=== PATIENT | male | born 1965 | race Caucasian/White ===

== ENCOUNTER 2017-04-06 04:13 | Inpatient (IN) | payer MEDICAID ==
[~2017-04-06] VITALS: Ht 185.4 cm; Wt 90.9 kg
[2017-04-06 04:19] VITALS: BP 131/74
--- NOTE | 2017-04-06 04:22 | Emergency Room Report ---
History of Present Illness Time Seen by 0419 Presenting Problem in Triage Pt arrived:Walked Presenting Problem:CP ON LEFT SIDE RADIATING TO LEFT ARM. PT STATES HE FELT LIKE HE HAS PNEUMONIA, C/O SOB, HAS VOMITED ONCE. Onset of symptoms date/time:/ or onset unknown for:MEDICAL HX UNKNOWN Treatment Prior to Arrival: PT STATES HE TOOK NYQUIL AND MOTRIN, STATED HE FELT LIKE HE HAD PNEUMONIA. 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 N Clinical Suspician of Infection? N Mental Status: 1 - Regular (Normal Baseline) Sepsis Risk:Possible Sepsis Risk Have you (or family members/close friends) recently traveled outside the [place]? N If Yes, where/when: Have you had exposure to infectious disease within the past month? N TB? Other? Specify: Comment Patient says he has been sick for about 24 hours. He started with a productive cough yesterday morning. He says he has colored sputum. He has felt hot, but has not taken his temperature. He says yesterday morning "I came down with a cold". He vomited once yesterday. He says about 3 or 4 hours ago he started having sharp chest pains from his LEFT shoulder blade through to the front of his chest that increases with coughing and when laying back. He says he is having trouble breathing. He does not know whether he has been wheezing. He is a smoker, but says he does not have a diagnosis of chronic obstructive pulmonary disease. No known heart disease. He is not on any prescription medication. He says that he has had to have breathing treatments or inhalers in the past for illnesses. No recent travel, hospitalizations, or surgeries. No calf pain or swelling. He says he recently moved back here a year and a half ago after living in [place]. He does not have a primary care provider here. ALLERGIES Coded Allergies: No Known Allergies (04/06/17) Home Medications Reported Medications No Known Home Medications History Medical History Surgical Hx Previous Surgery?Y KNEE Review of Systems All Other Systems Reviewed and Negative Constitutional see HPI Respiratory cough, shortness of breath Cardiovascular chest pain Physical Exam Vital Signs Vital Signs Date Time Temp Pulse Resp B/P Pulse O2 O2 Flow FiO2 Ox Delivery Rate 04/06 0752 72 20 109/73 94 4 04/06 0719 72 20 113/62 97 4 04/06 0525 20 04/06 0458 91 25 109/69 96 04/06 0429 89 04/06 0419 99.1 107 25 131/74 87 General Appearance no apparent distress Eye Exam - bilateral eye normal exam, bilateral eye PERRL, bilateral eye EOMI Ear, Nose, Throat hearing grossly normal, normal ENT inspection Neck normal inspection, non-tender, supple, full range of motion Respiratory Status Yes: trachea midline, chest symmetrical, non tender chest, non productive cough. No: respiratory distress. Lung Sounds bilateral: normal breath sounds, lungs clear. Cardiovascular normal exam, regular rate/rhythm, no peripheral edema, no gallop, no JVD, no murmur, no rub, normal peripheral pulses Peripheral Pulses Pulses normal Yes Gastrointestinal normal bowel sounds, normal exam, non tender, soft, no organomegaly Extremities non-tender, normal range of motion, normal inspection Neurologic alert, normal exam, oriented x 3 Mental status normal mood/affect Skin intact, normal color, warm/dry Lymphatic no adenopathy Medical Decision Making LABS/Meds/Orders Pt receiving controlled substance in ED? No Results/Orders Laboratory Tests 04/06/17424: Lactic Acid 1.1 04/06/17424: Sodium 136, Potassium 4.2, Chloride 100, Carbon Dioxide 31, BUN 17, Creatinine 1.0, Estimated Creat Clear 110, Estimated GFR (MDRD) 78, Glucose 133 H, Calcium 8.8, Total Bilirubin 0.7, AST 16, ALT 22, Alkaline Phosphatase 96, Creatine Kinase 100, CK-MB (CK-2) Rel Index 0.9, CK and CKMB Interp 0.9, Troponin I < 0.02, Total Protein 7.9, Albumin 4.2, Globulin 3.7 H, Albumin/Globulin Ratio 1.1, D-Dimer 216, WBC 9.4, RBC 4.83, Hgb 15.4, Hct 47.2, MCV 97.7, RDW 12.5, Plt Count 257, MPV 7.7, Gran % 84.7 H, Gran # 8.0, Lymphocytes % 7.9 L, Monocytes % 6.3, Eosinophils % 0.5, Basophils % 0.6, Lymphocytes # 0.7, Monocytes # 0.6, Eosinophils # 0.1, Basophils # 0.1, PUBS MCHC 32.6, MCH 31.9 H Current Medication Orders Sig/Alyce Start time Last Medication Dose Route Stop Time Status Admin Azithromycin 0 .STK-MED ONE 04/06 0747 DC IV Methylprednisolone 0 .STK-MED ONE 04/06 0747 DC Sodium Succinate .ROUTE Sodium Chloride 250 ML .STK-MED ONE 04/06 0746 DC IV Azithromycin 500 MG ONCE ONE 04/06 0745 AC 04/06 Sodium Chloride 250 ML IV 04/06 0844 0750 Methylprednisolone 125 MG ONCE ONE 04/06 0745 DC 04/06 Sodium Succinate IV 04/06 0746 0749 Iopamidol 60 ML PRN PRN 04/06 0730 UNV 04/06 IV 0630 Sodium Chloride 20 ML ONCE ONE 04/06 0730 UNV 04/06 IV 04/06 0731 0630 Sodium Chloride 20 ML ONCE ONE 04/06 0730 UNV 04/06 IV 04/06 0731 0630 Sodium Chloride 10 ML ONCE ONE 04/06 0730 UNV 04/06 IV 04/06 0731 0630 Ketorolac 30 MG ONCE ONE 04/06 0530 DC 04/06 Tromethamine IV 04/06 0531 0525 Benzonatate 0 .STK-MED ONE 04/06 0447 DC PO Albuterol/Ipratropium 3 ML ONCE ONE 04/06 0445 DC 04/06 INH 04/06 0446 0454 Benzonatate 200 MG ONCE ONE 04/06 0445 DC 04/06 PO 04/06 0446 0447 Aspirin 325 MG ONCE ONE 04/06 0430 DC 04/06 PO 04/06 0431 0427 Sodium Chloride 10 ML PRN PRN 04/06 0430 AC IV 04/07 0424 Aspirin 0 .STK-MED ONE 04/06 0422 DC .ROUTE Orders Procedure Date/time Status DIET-NOTHING BY MOUTH 04/[address] CHEST W/PE PROTOCOL REQ 04/06 0544 Complete RT Aerosol Treatment, Provide 04/06 0454 Active D-DIMER 04/06 0446 Complete RT REQUEST DUONEB 04/06 0444 Active CULTURE, BLOOD 04/06 0427 Active LACTIC ACID 04/06 0427 Complete 12 LEAD EKG-BESSON (INITIAL) 04/06 0426 Active ELECTROCARDIOGRAM REQUEST 04/06 0426 Active IV SALINE LOCK 04/06 0426 Active OXYGEN PER NURSE 11/12 0426 Active 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 No infiltrate, pneumothorax, pleural effusion, or wide mediastinum. CT chest Comment CT scan interpreted by radiologist: No evidence of pulmonary embolus or aortic aneurysm. Centrilobular emphysematous changes with obstructive chronic bronchitis. Coronary artery calcifications with minimal thickening of the pericardium anteriorly. Indeterminant 18 mm isodense lesion of the LEFT kidney. Progress - 5:45 AM: Patient says he feels a little better, but when oxygen turned off his pulse ox drops to 85 percent on room air. Patient will be admitted. He is agreeable. 8:10 AM: No return call from Dr. Peña as of yet. Case discussed with Dr. Francois at shift change. He will take the call from Dr. Peña's group. Orders have already been entered for admission. Departure Departure Disposition Still a Patient Clinical Impression Primary Impression: Acute respiratory failure with hypoxia Secondary Impressions: Acute bronchitis Qualifiers: Bronchitis organism: unspecified organism Qualified Code: J20.9 - Acute bronchitis, unspecified COPD exacerbation Condition STABLE Referrals NO REFERRAL Prescriptions Current Visit Scripts No Known Home Medications ED Critical Care Critical Care Yes Time spent 30-74 min Vital system(s) involved: Respiratory Failure I was present at bedside for Coordinating pt's care, Interpreting EKGs/Strips , During my initial exam, Reviewing lab results, Discussing pt condition, Examining radiographs at 0811
--- OUTSIDE RECORDS SUMMARY | 2017-04-06 04:33 | External Medical Summary Rpt ---
Author Author [employer]AC[employer]EL Lopez, JACIEL Lopez Organization [employer] Address Unknown Phone Unavailable
--- OUTSIDE RECORDS SUMMARY | 2017-04-06 04:33 | External Medical Summary Rpt | CCD ---
Author Author [employer] Organization [employer] Address Unknown Phone Unavailable Purpose Continuity of Care Document - through 2016
--- OUTSIDE RECORDS SUMMARY | 2017-04-06 04:33 | External Medical Summary Rpt | CCD ---
Demographics Preferred Language Taiwanese Marital Status Unknown Mandaeism Affiliation Unknown Race Unknown Ethnic Group Unknown Author Author , JACIEL GRISSOM Address Unknown Phone Immunization No patient found.
--- OUTSIDE RECORDS SUMMARY | 2017-04-06 04:33 | External Medical Summary Rpt | CCD ---
Author Author , JACIEL GRISSOM Address Unknown Phone [email or web address] Purpose Continuity of Care Document - 11-20-2016 through 2016 Problems Code Diagnosis DOS Provider Status R63.4 ABNORMAL 11-20-2016 WEIGHT LOSS
--- OUTSIDE RECORDS SUMMARY | 2017-04-06 04:33 | External Medical Summary Rpt | CCD ---
Demographics Preferred Language Belarusian Marital Status Unknown Caodaism Affiliation Unknown Race Unknown Ethnic Group Unknown Author Author , JACIEL GRISSOM Address Unknown Phone Immunization No patient found.
--- OUTSIDE RECORDS SUMMARY | 2017-04-06 04:33 | External Medical Summary Rpt | CCD ---
Author Author , JACIEL GRISSOM Address Unknown Phone [email or web address] Purpose Continuity of Care Document - 11-20-2016 through 2016 Problems Code Diagnosis DOS Provider Status R63.4 ABNORMAL 11-20-2016 WEIGHT LOSS
[2017-04-06 04:40] LABS: HEMOGLOBIN 15.4 g/dL (14.1-18.0); LYMPH # 0.7 K/mm3 (0.7-4.5); LYMPH % 7.9 % (10-50)
[2017-04-06 05:07] LABS: BUN 17 mg/dL (7-18)
[2017-04-06 05:10] LABS: GFR (ESTIMATED) 78 ML/MIN (>60)
--- NOTE | 2017-04-06 06:17 | RADIOLOGY REPORT PS360 ---
CHEST-PORTABLE HISTORY: Shortness of breath and chest pain CP, SOB ORDERING PHYSICIAN: Jose David Whitney MD PATIENT AGE: 52 years COMPARISON: None available FINDINGS: The cardiomediastinal silhouette and pulmonary vascularity are within normal limits. The lungs are clear without infiltrates, suspicious nodules, or pleural effusions. No acute bony abnormalities. IMPRESSION: Negative chest, no acute finding
--- NOTE | 2017-04-06 07:14 | RADIOLOGY REPORT PS360 ---
CTA-CHEST HISTORY: SOA , CHEST PAIN ORDERING PHYSICIAN: Jose David Whitney MD PATIENT AGE: 52 years TECHNIQUE: Helical acquisition obtained following the bolus administration of 60 mL of Isovue 370 followed by a saline bolus. Axial, sagittal, and coronal reformatted images are generated and reviewed. COMPARISON: None FINDINGS: PULMONARY ARTERIES:No pulmonary embolus evident. AORTA:No acute finding. No thoracic aortic aneurysm LUNGS:Centrilobular emphysematous changes with scattered areas of scarring with hyperinflation and attenuation of the peripheral pulmonary vessels and bronchial thickening consistent with obstructive chronic bronchitis.. PLEURAL SPACES:No significant effusion. No evidence of pneumothorax. HEART:Unremarkable. Normal heart size. Mild pleural thickening anteriorly. Coronary artery calcifications are present MEDIASTINAL AND HILAR STRUCTURES:No mediastinal or hilar mass evident. No dominant adenopathy. BONY STRUCTURES:No acute bony abnormalities apparent LYMPH NODES:No enlarged lymph nodes evident UPPER ABDOMEN:There is an indeterminate incompletely imaged 18 mm isodensity of the left kidney posteriorly. IMPRESSION: 1. No evidence of pulmonary embolus or aortic aneurysm. 2. Centrilobular emphysematous changes with obstructive chronic bronchitis 3. Coronary artery calcifications suggesting coronary artery disease with minimal thickening of the pericardium anteriorly 4. Indeterminate 18 mm isodense lesion of the left kidney. Cystic or solid nature may be better determined with outpatient ultrasound
--- NOTE | 2017-04-06 09:03 | PHARMACY CLINIC NOTE ---
Patient Demographics Patient Demographics Admission date: 04/06/17 Date: 04/06/17 Time: 0903 Allergies Coded Allergies: No Known Allergies (04/06/17) HEIGHT- FT: 6 IN: 1.00 K.720 VTE General Information Labs: Laboratory Tests 04/06 0425 Hematology Hgb (14.1 - 18.0 g/dL) 15.4 Hct (42.0 - 52.0 %) 47.2 Plt Count (142 - 424 K/mm3) 257 Disclaimer The following section includes nursing documentation that has been pulled in for pharmacy review. VTE prophylaxis [id number] VTE prophylaxis ordered? Yes Type of prophylaxis/treatment: GUSTAVO at 0903
[2017-04-06 09:16] VITALS: BP 106/73
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
[2017-04-06 16:53] VITALS: BP 120/62
[2017-04-06 20:09] VITALS: BP 121/61
[2017-04-07 03:59] VITALS: BP 115/67
[2017-04-07 08:06] VITALS: BP 121/65
--- NOTE | 2017-04-07 08:27 | ACUTE CARE PROGRESS NOTE (QUA) ---
See Addendum Progress Notes Subjective Date 04/07/17 Time 0824 Note Did not sleep well but states he is breating better. Cough has subsided some. No further chest pain. Objective Findings Last VS-Temp:98.9 B/P:121/65 Pulse:87 Resp:20 SaO2:94 OXYGEN Last weight lbs:200 oz:5 K.861 Method:Bed Scales Exam General appearance: alert, no acute distress Cardiovascular: regular rate & rhythm, no murmur Respiratory: coarse BS which are generally diminished. Fewer rhonchi. Assessment/Plan Problem List 1. Acute bronchitis 2. Acute exacerbation of chronic obstructive pulmonary disease (COPD) 3. Hypoxemia 4. History of diverticulosis 5. Tobacco abuse disorder 6. Renal mass, left Plan: Wean O2, repeat CXR This inpt stay is expected to cross 2 MNs from start of care Yes at 0878
[2017-04-07 09:00] VITALS: BP 121/65
--- NOTE | 2017-04-07 11:23 | RADIOLOGY REPORT PS360 ---
CHEST(2 VIEWS-NOT PORTABLE) HISTORY: COPD, bronchitis, hypoxemia ORDERING PHYSICIAN: Trevon Peña MD PATIENT AGE: 52 years COMPARISON: 04/06/2017 FINDINGS: The cardiomediastinal silhouette and pulmonary vascularity are within normal limits. The lungs are clear without infiltrates, suspicious nodules, or pleural effusions. No acute bony abnormalities. There are old left-sided rib fractures. There is hyperinflation with hyperlucency consistent with COPD IMPRESSION: COPD, no change with no acute finding
[2017-04-07] MEDS ORDERED: ZITHROMAX Z PA250 MG PO (13:47)
[2017-04-07] MEDS ORDERED: MEDROL 4MG. DOSE4 MG PO (13:47)
[2017-04-07] MEDS ORDERED: VENTOLIN H0.09 MG/Ac IH (13:49)
[2017-04-07 15:00] VITALS: BP 126/70
--- NOTE | 2017-04-08 21:07 | DISCHARGE SUMMARY STANDARD ---
Discharge Summary (FCA2) Date of admission: 04/06/17 Date of discharge: 04/07/17 Problem List: 1. Acute bronchitis 2. Acute exacerbation of chronic obstructive pulmonary disease (COPD) 3. Hypoxemia 4. History of diverticulosis 5. Tobacco abuse disorder 6. Renal mass, left History of present illness: Mr. Coley is a 52-year-old white male with a history of cigarette smoking who presented to the emergency room with increasing shortness of breath and cough of about 24 hours duration. He stated the previous day, while he was deer hunting, he felt he was getting a cold but as the day progressed he developed cough, congestion, and shortness of breath. Early the next morning, when he developed left-sided chest pain, he presented to the emergency room. He was evaluated in the emergency room. He was hypoxic. EKG and cardiac enzymes were unremarkable. He had a normal white count. Chest x-ray showed no acute infiltrates. D-dimer was normal. He underwent a CT scan of the chest which showed chronic emphysematous changes but no acute infiltrates and no evidence of pulmonary embolus. He remained hypoxic and was requiring supplemental oxygen in the emergency room. He was admitted with a diagnosis of COPD exacerbation with bronchitis. 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 He received supplemental nasal oxygen. He was started on IV steroids, albuterol nebulizer treatments, and empiric treatment with IV Zithromax. He did have a left renal nodule visible on CT that will probably need further evaluation as an outpatient once his acute symptoms resolve. By the next day he felt much better and his oxygen was able to be weaned. His CXR was repeated and showed COPD with nothing acute. He was stable to be discharged home. Discharge medications: Start taking the following new medications: Azithromycin (Zithromycin (Z-CELESTINO) 250MG Tab) 250 MG TABLET 250 MILLIGRAM ORAL DAILY Qty = 6 No Refills Instructions: TAKE TWO (2) TABLETS ON DAY 1, THEN ONE (1) TABLET DAY #2 THRU #5 Methylprednisolone (Medrol Dose Celestino) 21 TAB CELESTINO 4 MILLIGRAM ORAL UD Qty = 1 No Refills Instructions: TAKE DIRECTED ON PACKAGING Albuterol Sulfate (Ventolin Hfa) 18 GM HFA.AER.AD 0.09 MILLIGRAM INHALATION FOUR TIMES A DAY NEEDED as needed for SHORTNESS OF BREATH Qty = 1 No Refills Disposition: F/U with: Niru Garrett MD Follow up: 4-5 days Activity: Cont Current activity Diet: Regular Discharge to: HOME Agency needed? N at 2576
== END 2017-04-07 14:50 | disposition home or self-care (01) | DRG 192 ==
LOC: ER 04:13 → 2ND 07:50 → ER 07:50 → 2ND 08:44
PROVIDERS: Emergency Medicine
DX: J44.1 Chronic obstructive pulmonary disease with (acute) exacerbation (principal); J20.9 Acute bronchitis, unspecified; J44.0 Chronic obstructive pulmonary disease with (acute) lower respiratory infection; Z72.0 Tobacco use
CPT/HCPCS: J0456; Q9967